=== PATIENT | male | born 1990 | race Caucasian/White ===

== ENCOUNTER 2017-01-17 18:59 | Emergency (ER) ==
--- NOTE | 2017-01-17 20:12 | PROVIDER DOCUMENTATION ---
HPI-Headache - General Chief Complaint: Headache Stated Complaint: DALE Time Seen by Provider: 01/17/17 20:05 Source: patient Allergies/Adverse Reactions: Patient Allergies Allergy/AdvReac Type Severity Reaction Status Date / Time No Known Allergies Allergy Verified 05/14/15 11:43 Home Medications: Home Medication List Medication Instructions Recorded Confirmed Last Taken Type Butalbital/APAP/Caffeine [Fioricet] 1 each PO Q4H PRN PRN #10 tablet 01/17/17 Unknown Rx - History of Present Illness-Headache Nature of Presenting Problem: 26 y/o WM c/o DALE x 4 hours. Pt states that he has no hx of migraines in the past, or other medical hx. States that pain is 10/10. Reports mild blurry vision in R eye. States some dizziness yesterday. Denies N/V, photophobia. No other sxs. Review of Systems - Adult - REVIEW OF SYSTEMS - ADULT Constitutional: reports: no symptoms reported. denies: chills, fever Eyes: reports: no symptoms reported. denies: blurred vision, double vision Ears, Nose, Mouth & Throat: reports: no symptoms reported. denies: ear pain, nose pain Cardiovascular: reports: no symptoms reported. denies: chest pain, palpitations Respiratory: reports: no symptoms reported. denies: dyspnea on exertion, shortness of breath Gastrointestinal: reports: no symptoms reported. denies: abdominal pain, nausea , vomiting Genitourinary: reports: no symptoms reported. denies: dysuria, frequency Musculoskeletal: reports: no symptoms reported Integumentary: reports: no symptoms reported. denies: nail changes, rash Neurological: reports: see HPI, dizziness/vertigo, headache/migraines. denies: numbness, paresthesia Psychiatric: reports: no symptoms reported Endocrine: reports: no symptoms reported. denies: cold intolerance, heat intolerance Hematologic/Lymphatic: reports: no symptoms reported. denies: easy bruising, prolonged bleeding Allergic/Immunologic: reports: no symptoms reported All Other Systems: Reviewed and Negative Past History - Adult - PAST MEDICAL HISTORY-ADULT Review of Records: reports: Nursing Assessment Review, Medications Reviewed Major Childhood Illnesses: reports: denies history Cardiovascular: reports: murmur (as a child) Respiratory: reports: denies history Gastrointestinal: reports: denies history Obstetrical/Gynecological: reports: denies history Genitourinary: reports: denies history Musculoskeletal: reports: denies history Neurological: reports: denies history Endocrine/Immune: reports: denies history Other Conditions: reports: denies history - FAMILY HISTORY Family History: reviewed, not pertinent - SOCIAL HISTORY Smoking: denies Physical Exam- Neurological - Physical Exam-Neuro Initial Vital Signs Reviewed: Yes General Appearance: alert, mild distress Eye Exam: bilateral eye: normal inspection, PERRL, EOMI HENMT: normocephalic/atraumatic, moist mucous membranes. negative: hearing deficit Head Injury: no evidence of injury Neck: full range of motion, supple, normal inspection Respiratory: lungs clear, normal breath sounds. negative: crackles, rales, rhonchi, stridor, wheezing Cardiovascular: regular rate, rhythm. negative: bradycardia, tachycardia Extremity: normal gait. 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 negative: aphasia, EOM palsy, facial droop, focal weakness, motor weakness, sensory deficit Integumentary: normal color, normal turgor, warm/dry Psych/Mental Status: normal mood/affect, normal thought content, normal thought process, oriented x 3 Progress - PLAN OF CARE/RESULTS Progress/Plan/Lab Results: Orders Category Date Time Status HEAD W/O CONTRAST [CT] Stat Exams 01/17/17 20:06 Completed Butalbital/APAP/Caffeine [Fioricet] Med 01/17/17 20:36 Discontinued 1 each PO NOW ONE Promethazine [Phenergan] Med 01/17/17 20:36 Discontinued 25 mg PO NOW ONE Vital Signs Temp Pulse Resp BP Pulse Ox 01/17/17 21:13 66 16 128/79 97 01/17/17 19:24 97.9 F 70 16 148/85 100 No Known Allergies Allergy (Verified 05/14/15 11:43) Butalbital/APAP/Caffeine [Fioricet] 1 each PO Q4H PRN PRN #10 tablet 01/17/17 OTHER VISUAL DISTURBANCES (01/17/17) DIZZINESS AND GIDDINESS (01/17/17) HEADACHE (01/17/17) discussed results and follow up with patient. - CT/MRI 1 CT Study: Head Impression: See EMR Report (negative, per Dr. Trinidad) Departure - Departure Time of Disposition Order: 20:33 DIAGNOSIS: Headache Qualifiers: Headache type: unspecified Headache chronicity pattern: acute headache Intractability: not intractable Qualified Code(s): R51 - Headache Disposition: HOME 01 Certified Medical Emergency: Emergent Condition: Stable Additional Instructions: Take medications as directed. Follow up with specialist for further evaluation. ED Follow Up Instructions: You have been treated by a care provider in the Emergency Department. These instructions are being provided to you so you can have an understanding of how to care for yourself upon discharge. Upon discharge from the Emergency Department, you are responsible for making arrangements for follow-up care by a physician of your choice. Take all prescribed medications as directed. Return to the Emergency Department immediately for any new or worsening symptoms. You may call the Physician Referral phone number at [phone] to obtain a list of Physicians who are taking new patients. Prescriptions: Butalbital/APAP/Caffeine [Fioricet] 1 each PO Q4H PRN PRN #10 tablet PRN Reason: Headache Referrals: None,PCP [Primary Care Provider] - Ivett Chacon III, MD [STAFF PHYSICIAN] - Forms: Return to School/Parent Work Instructions: Migraine Headache, [id number] Attestation - Physician/ JOSIAS Attestation Patient care was provided by Advanced Practice Provider:: Yes Advanced Practice Provider:: Olivia Quintero Advanced Practice Provider documentation review:: The Mid-level provider documentation, treatment plan and medical decision making was reviewed by the physician who agrees with all treatment and medical decision making by the MLP.
[2017-01-17] MEDS ORDERED: FIORICET PO ONE (20:36)
[2017-01-17] MEDS ORDERED: PHENERGAN PO ONE (20:36)
[2017-01-17 21:14] VITALS: BP 128/79
--- NOTE | 2017-01-18 08:06 | Diag Imaging Result Document ---
PROCEDURE NAME: HEAD W/O CONTRAST - 01/17/2017 CT OF THE HEAD WITHOUT CONTRAST: FINDINGS: There is no evidence of mass effect, bleed, or abnormal extra-axial fluid collection. The regional skeleton is intact. The visualized paranasal sinuses are clear. IMPRESSION: No evidence of acute disease.
== END 2017-01-17 21:12 | disposition home or self-care (01) ==
LOC: ED 18:59
DX: R51 Headache (principal); H53.8 Other visual disturbances; R42 Dizziness and giddiness
CPT/HCPCS: 70450